=== PATIENT | female | born 1945 | race African-American/Black ===

== ENCOUNTER 2017-09-05 09:48 | Emergency (ER) | END 2017-09-05 10:25 | disposition home or self-care (01) ==

== ENCOUNTER 2018-09-29 10:53 | Emergency (ER) | payer MEDICAID, MEDICARE, OTHER ==
[~2018-09-29] VITALS: Ht 162.6 cm; Wt 36.9 kg
[~2018-09-29 10:53] MED LIST: ALEN70TA5 PO; AMLO-145 PO; AMOX500T PO; ASPI-831 PO; FOLI-49 PO; LEVE10006 PO
[2018-09-29 10:57] VITALS: BP 150/72; PULSE 87; RESP 19; Ht 162.6 cm; Wt 36.9 kg
== END 2018-09-29 14:12 | disposition left against medical advice (07) ==
LOC: E/R 10:53
DX: Z53.21 Procedure and treatment not carried out due to patient leaving prior to being seen by health care provider (principal)

== ENCOUNTER 2018-10-29 08:44 | Emergency (ER) | payer MEDICARE, OTHER ==
[~2018-10-29] VITALS: Ht 170.2 cm; Wt 47.5 kg
[2018-10-29 08:49] VITALS: Ht 170.2 cm; Wt 47.5 kg
--- NOTE | 2018-10-29 10:19 | ERD ---
ER Documentation Chief Complaint Chief Complaint C/O BILATERAL LOWER LEG SWELLING FOR A WEEK. NO CP, MILD SOB NOTED. HPI This is a 73-year-old woman complaining of about 4 to 5 days of bilateral foot edema. She later stated her daughter cooks most of her food and adds way too much salt (especially recently). Patient denies chest pain or shortness of breath, no orthopnea, no paroxysmal nocturnal dyspnea, no fevers or chills, no cough, no abdominal pain. Patient uses a walker to ambulate mostly within the house. ROS All systems reviewed and are negative except as per history of present illness. Medications Home Meds Reported Medications Multivits,Ca,Minerals/Iron/Fa (WOMEN'S DAILY CAPLET) 1 Each Tablet, 1 EACH PO DAILY, TAB 10/29/18 Aspirin* (Aspirin* EC) 81 Mg Tablet.dr, 81 MG PO DAILY, TAB 10/29/18 Alendronate Sodium* (Fosamax*) 70 Mg Tablet, 70 MG PO Q7D, #4 TAB 10/29/18 Phenytoin* Sodium Extended (Dilantin*) 100 Mg Capsule, 300 MG PO HS, CAP 10/29/18 Levetiracetam* (Levetiracetam*) 1,000 Mg Tablet, 1000 MG PO BID, TAB 10/29/18 Amlodipine Besylate* (Norvasc*) 5 Mg Tablet, 5 MG PO DAILY, TAB 10/29/18 Folic Acid* (Folic Acid*) 1 Mg Tablet, 1 MG PO DAILY, TAB 10/29/18 Discontinued Reported Medications Levetiracetam* (Levetiracetam*) 1,000 Mg Tablet, 1000 MG PO BID 10/11/13 Alendronate Sodium* (Fosamax*) 70 Mg Tablet, 70 MG PO Q7D 10/11/13 Amlodipine Besylate* (Amlodipine Besylate*) 5 Mg Tablet, 5 MG PO DAILY 10/11/13 Aspirin (Aspirin) 81 Mg Chew, 81 MG PO DAILY 10/11/13 Folic Acid* (Folic Acid*) 1 Mg Tablet, 1 MG PO DAILY 10/11/13 Discontinued Scripts Amoxicillin Trihydrate (Amoxicillin) 500 Mg Tablet, 500 MG PO TID for 10 Days, #20 TAB Prov:RAQUEL ARROYO 09/05/17 Allergies Allergies: Coded Allergies: No Known Allergy (Verified , 10/29/18) Uncoded Allergies: NONE (Allergy, Mild, 02/19/10) PMhx/Soc Seizures, hypertension History of Surgery: Yes (stent in distal common bile duct) Anesthesia Reaction: No Hx Neurological Disorder: No Hx Respiratory Disorders: No Hx Cardiac Disorders: Yes (HTN) Hx Psychiatric Problems: No Hx Miscellaneous Medical Probl: No Hx Alcohol Use: No Hx Substance Use: No Hx Tobacco Use: No Smoking Status: Current every day smoker Physical Exam Vitals Vital Signs Date Temp Pulse Resp B/P (MAP) Pulse Ox O2 O2 Flow FiO2 Time Delivery Rate 10/29/18 97.6 102 24 153/69 95 08:49 (97) Physical Exam GENERAL: Well-developed, well-nourished, appears dehydrated, afebrile HEENT: Dry mucous membranes, pink conjunctiva, no cervical spine tenderness or step-off deformities, no goiter, no jaundice or icterus, extraocular movements intact without pain. No submandibular induration, and no pharyngeal erythema NEURO: Alert and oriented 3, cranial nerves II through XII intact bilaterally, pupils equal round reactive to light, no focal deficits or facial asymmetry, sensation intact distally Strength 5/5 in upper and lower extremities bilaterally CARDIAC: Regular rate and rhythm, no murmurs rubs or gallops LUNGS: Clear bilaterally no wheezing crackles or stridor ABDOMEN: Soft nontender, no guarding, no rigidity, no rebound, no psoas sign no obturator sign. Normoactive bowel sounds SKIN: Warm and dry to touch, no abrasions, contusions, or hematomas, no lacerations, no ecchymosis, no target lesions, and without ulcers EXTREMITIES: No clubbing cyanosis 2+ pitting edema in the feet bilaterally, calves are bilaterally symmetrical, no Homans sign, no popliteal cord sign. Di stal pulses equal and bilateral PSYCH: Normal affect without agitation or irritability Result Diagram: 10/29/18 1056 10/29/18 1056 Results 24 hrs Laboratory Tests Test 10/29/18 10:56 White Blood Count 5.9 10^3/ul Red Blood Count 4.09 10^6/ul Hemoglobin 11.1 g/dl Hematocrit 34.4 % Mean Corpuscular Volume 84.1 fl Mean Corpuscular Hemoglobin 27.1 pg Mean Corpuscular Hemoglobin Concent 32.3 g/dl Red Cell Distribution Width 13.7 % Platelet Count 152 10^3/UL Mean Platelet Volume 12.3 fl Immature Granulocytes % 0.300 % Neutrophils % 63.6 % Lymphocytes % 27.4 % Monocytes % 7.5 % Eosinophils % 0.5 % Basophils % 0.7 % Nucleated Red Blood Cells % 0.0 /100WBC Immature Granulocytes # 0.020 10^3/ul Neutrophils # 3.7 10^3/ul Lymphocytes # 1.6 10^3/ul Monocytes # 0.4 10^3/ul Eosinophils # 0.0 10^3/ul Basophils # 0.0 10^3/ul Nucleated Red Blood Cells # 0.0 10^3/ul Urine Color YELLOW Urine Clarity CLEAR Urine pH 6.0 Urine Specific [place] 1.008 Urine Ketones NEGATIVE mg/dL Urine Nitrite NEGATIVE mg/dL Urine Bilirubin NEGATIVE mg/dL Urine Urobilinogen NEGATIVE mg/dL Urine Leukocyte Esterase NEGATIVE Kellen/ul Urine Hemoglobin NEGATIVE mg/dL Urine Glucose NEGATIVE mg/dL Urine Total Protein NEGATIVE mg/dl Sodium Level 143 mmol/L Potassium Level 4.1 mmol/L Chloride Level 103 mmol/L Carbon Dioxide Level 31 mmol/L Anion Gap 9 Blood Urea Nitrogen 8 mg/dl Creatinine 0.44 mg/dl Est Glomerular Filtrat Rate mL/min mL/min Glucose Level 106 mg/dl Calcium Level 9.1 mg/dl Total Bilirubin 0.3 mg/dl Direct Bilirubin 0.00 mg/dl Indirect Bilirubin 0.3 mg/dl Aspartate Amino Transf (AST/SGOT) 45 IU/L Alanine Aminotransferase (ALT/SGPT) 29 IU/L Alkaline Phosphatase 155 IU/L Troponin I < 0.012 ng/ml B-Type Natriuretic Peptide 1950 PG/ML Total Protein 6.7 g/dl Albumin 3.5 g/dl Globulin 3.20 g/dl Albumin/Globulin Ratio 1.09 Lipase 16 U/L Current Medications Medications Dose Sig/Maribell Start Time Status Last (Trade) Ordered Route PRN Stop Time Admin Dose Reason Admin Clonidine 0.1 mg ONCE ONCE 10/29/18 (Catapres) PO 12:30 10/29/18 12:31 Procedures/MDM IV line was established patient was placed on cardiac nurse practitioner rhythm strip revealed a sinus rhythm at about 80 bpm with upright P and T waves. Patient was afebrile EKG performed, read by me: 78 bpm, normal sinus rhythm, normal axis, no acute ST segment changes, narrow QRS complex, with good R-wave progression in precordial leads. One AP view of the chest performed, read by me reveals no acute infiltrates, normal mediastinum, sharp costophrenic and cardiac borders, no air under the diaphragm. Otherwise unremarkable chest x-ray. CBC and electrolytes were normal, liver function tests normal, troponin negative, BNP elevated, urinalysis was negative for infection. Patient's blood pressure was elevated in the ER although she remained asymptomatic and was resting comfortably laying flat and on room air oxygen saturation was 98%. I administered clonidine 0.1 mg p.o. for hypertension. Differential diagnoses considered, included but not limited to acute coronary syndrome, pulmonary embolism, aortic dissection, abdominal aortic aneurysm, sepsis, stroke, meningitis, encephalitis, pneumonia, appendicitis, cholecystitis, bowel obstruction, pyelonephritis, nephrolithiasis, cystitis, as well as metabolic, hematologic, and electrolyte abnormalities. As well as abscess, cellulitis, fractures, and dislocations. Patient feels much better at this time, and vital signs are normal, symptoms have improved. I did give strict instructions to return to the ED if symptoms continue or worsen, patient will otherwise follow-up with primary care physician. Patient understood instructions and agreed to plan. Disclaimer: Inadvertent spelling and grammatical errors are likely due to EHR/dictation software use and do not reflect on the overall quality of patient care. Also, please note that the electronic time recorded on this note does not necessarily reflect the actual time of the patient encounter. Departure Diagnosis: Primary Impression: Peripheral edema Additional Impression: Hypertension Hypertension type: essential hypertension Qualified Codes: I10 - Essential (primary) hypertension Condition: TIAN Almanza MD Oct 29, 2018 10:19
[2018-10-29] MEDS ORDERED: FOLI-49 PO (10:46)
[2018-10-29] MEDS ORDERED: AMLO5TAB4 PO (10:49)
[2018-10-29] MEDS ORDERED: LEVE10006 PO (10:50)
[2018-10-29] MEDS ORDERED: ASPI-817 PO (10:51)
[2018-10-29] MEDS ORDERED: ALEN70TA5 PO (10:51)
[2018-10-29] MEDS ORDERED: PHEN100C PO (10:51)
[2018-10-29] MEDS ORDERED: MULT-344 PO (10:53)
[2018-10-29 13:54] VITALS: BP 141/65; PULSE 72; RESP 20
== END 2018-10-29 13:55 | disposition home or self-care (01) ==
LOC: E/R 08:44
DX: R60.0 Localized edema (principal); I10 Essential (primary) hypertension; F17.210 Nicotine dependence, cigarettes, uncomplicated; R40.2142 Coma scale, eyes open, spontaneous, at arrival to emergency department; R40.2362 Coma scale, best motor response, obeys commands, at arrival to emergency department; R40.2252 Coma scale, best verbal response, oriented, at arrival to emergency department; Z79.82 Long term (current) use of aspirin
CPT/HCPCS: 36415; 71045; 80053; 81003; 83690; 83880; 84484; 85025; 93005